=== PATIENT | male | born 1965 | race Caucasian/White ===

== ENCOUNTER → 2020-03-31 | Day surgery (SDC) | payer OTHER ==
[~2020-03-31] MED LIST: AMBIEN10 MG PO; ATIVAN1 MG PO; BUTALBITAL-ASA1 EACH PO; ESOMEPRAZOLE MAG PO; GEODON60 MG PO; ISENTRESS400 MG PO; LITHIUM CARBON450 MG PO; MULTI-VITAMIN1 EACH PO; PROPOFOL IV EMULSION 10 MG/ML 20 ML VIAL ONE; PROPRANOLOL HCL80 MG PO; TRUVADA 200 MG1 EACH PO
[2020-03-31 11:50] VITALS: BP 111/75
== END | disposition home or self-care (01) ==
LOC: OR 08:27
PROVIDERS: ATTEND Internal Medicine Gastroenterology
DX: Z12.11 Encounter for screening for malignant neoplasm of colon (principal); D12.3 Benign neoplasm of transverse colon; K52.9 Noninfective gastroenteritis and colitis, unspecified; K29.70 Gastritis, unspecified, without bleeding; K22.70 Barrett's esophagus without dysplasia; K22.8 Other specified diseases of esophagus; K21.9 Gastro-esophageal reflux disease without esophagitis; K44.9 Diaphragmatic hernia without obstruction or gangrene; K57.30 Diverticulosis of large intestine without perforation or abscess without bleeding; K64.8 Other hemorrhoids; Z21 Asymptomatic human immunodeficiency virus [HIV] infection status; I45.10 Unspecified right bundle-branch block; E03.9 Hypothyroidism, unspecified; F31.9 Bipolar disorder, unspecified; M54.9 Dorsalgia, unspecified; R25.1 Tremor, unspecified; Z86.19 Personal history of other infectious and parasitic diseases; Z87.891 Personal history of nicotine dependence
CPT/HCPCS: 43239; 45380; 45384; 93005; J2704; U0002; 45378